=== PATIENT | male | born 1975 | race Caucasian/White ===

== ENCOUNTER 2024-04-10 16:18 | Emergency (ER) | payer BC, OTHER ==
--- NOTE | 2024-04-10 17:48 | RAD REPORT ---
EXAMINATION: ONE VIEW CHEST XR CLINICAL INDICATION: Chest bony TECHNIQUE: Frontal chest projection is submitted. Examination is limited by patient positioning and t echnique. COMPARISON: No prior exam. FINDINGS: The lungs are well inflated and clear. The heart is normal in size. No displaced fractures identified . IMPRESSION: No acute intrathoracic abnormalities.
[2024-04-10] MEDS ORDERED: ASPIRIN 81 MG CHEWABLE TABLET ONE (18:29)
[2024-04-10 18:35] LABS: Absolute Eosinophils 0.2 K/uL (0-0.5); Absolute Lymphocytes (CBC) 2.5 K/uL (0.7-4.9); Absolute Monocytes 0.6 K/uL (0.1-1.3); Absolute Neutrophil 2.9 K/uL (1.8-8.0); Basophils % 0.7 % (0-1.3); Eosinophils % 2.8 % (0-4.4); Hematocrit 45.2 % (39.6-49.0); Hemoglobin 15.4 g/dL (13.6-17.9); MCH 31.3 pg (27.0-35.0); MCV 92.1 fL (80-100); MPV 9.4 fL (7.6-11.3); Monocytes % 9.6 % (3.3-12.3); Neutrophils % 46.9 % (41.7-73.7); Nucleated Red Blood Cells % 0.1 % (0-0); Platelets 149 thou/uL (152-406); RBC Red Blood Cell Count 4.91 M/uL (4.33-5.43); Red Cell Distribution Width 14.1 % (12.1-15.2)
[2024-04-10 18:53] LABS: ALT/SGPT 49 U/L (16-61); AST/SGOT 23 U/L (15-37); Albumin 3.8 g/dL (3.4-5.0); Albumin/Globulin Ratio 1.1 (1.1-1.8); Alkaline Phosphatase 59 U/L (45-117); Anion Gap 6.7 mEq/L (5.0-15.0); BUN Blood Urea Nitrogen 10 mg/dL (7-18); Bicarbonate 29 mEq/L (21-32); Bilirubin Total 0.4 mg/dL (0.2-1.0); Globulin 3.6 g/dL (2.3-3.5); Glomerular Filtration Rate 86 ml/min (=/>90); Glucose Level 138 mg/dL (74-106); Magnesium 2.1 mg/dL (1.6-2.4); NT PRO-BNP 30 pg/mL (<125); Potassium 3.7 mEq/L (3.5-5.1); Protein, Total 7.4 g/dL (6.4-8.2); Sodium Level 137 mEq/L (136-145); Troponin High Sensitivity 3.9 pg/mL (<58.9)
[2024-04-10 19:03] LABS: Bilirubin Direct < 0.2 mg/dL (0-0.2); Bilirubin Indirect, Calculated 0.2 mg/dL (0.2-0.8)
--- NOTE | 2024-04-10 20:51 | EDPHYS ---
Physician Documentation [facility] Name: Veto Serrano Age: 48 yrs Sex: Male : 1975 Arrival Date: 04/10/2024 Time: 16:18 Bed 2 Private MD: ED Physician Jatinder Duggan HPI: 04/10 17:09 This 48 yrs old Male presents to ER via Ambulatory with complaints of Chest Tightness, kb Chest Pain - x2days. 17:10 Patient is a 48-year-old male who presents for left-sided chest tightness that started kb 3 days ago. States he woke up Monday morning with the tightness in his been constant since then. Reports intermittent headaches and high blood pressure. Denies nausea, vomiting, shortness of breath. No aggravating or alleviating factors. States he came in today because the pain is just persisted.. Historical: - Allergies: 16:55 No Known Allergies; ko1 - Home Meds: 16:57 triamterene-hydrochlorothiazid 37.5-25 mg Oral tablet 1 tab daily for hypertension ko1 [Active]; - PMHx: 16:55 Hypertensive disorder; Gastric reflux; ko1 - PSHx: 16:55 None; ko1 - Immunization history:: Adult Immunizations unknown. - Infectious Disease History:: Denies. - Social history:: Smoking status: Patient denies any tobacco usage or history of. ROS: 17:09 Constitutional: As per HPI kb Exam: 17:09 Constitutional: This is a well developed, well nourished patient who is awake, alert, kb and in no acute distress. Head/Face: Normocephalic, atraumatic. ENT: Moist Mucous membranes Cardiovascular: Regular rate Respiratory: Respirations even and unlabored. No increased work of breathing. Talking in full sentences Abdomen/GI: Soft, non-tender. No distention Skin: Warm, dry with normal turgor. Normal color. MS/ Extremity: Pulses equal, no cyanosis. Neurovascular intact. Full, normal range of motion. Neuro: Awake and alert, GCS 15, oriented to person, place, time, and situation. 17:09 ECG was reviewed by the Attending Physician. Vital Signs: 16:51 BP 142 / 96; Pulse 80; Resp 16; Temp 97.6; Pulse Ox 98% ; ko1 18:36 Pulse 68; Resp 17; ll1 20:06 BP 134 / 97; Pulse 69; Resp 16; Temp 97.6; Pulse Ox 98% ; Pain 6/10; bm8 21:15 BP 135 / 93; Pulse 63; Resp 17; Temp 97.6; Pulse Ox 96% ; Pain 0/10; bm8 20:06 Pain Scale: Adult bm8 21:15 Pain Scale: Adult bm8 [place] Coma Score: 20:06 Eye Response: spontaneous(4). Motor Response: obeys commands(6). Verbal Response: bm8 oriented(5). Total: 15. 21:15 Eye Response: spontaneous(4). Motor Response: obeys commands(6). Verbal Response: bm8 oriented(5). Total: 15. MDM: 16:23 Medical Screening Exam initiated kb 17:09 Data reviewed: vital signs, nurses notes. kb 20:51 Differential diagnosis: acute IL, arrhythmia. Consideration of Admission/Observation kb Escalation of care including admission/observation considered. admission considered but HEART score 2, serial troponin normal. Counseling: I had a detailed discussion with the patient and/or guardian regarding the historical points, exam findings, and any diagnostic results supporting the discharge/admit diagnosis, lab results, radiology results, the need for outpatient follow up, a family practitioner, to return to the emergency department if symptoms worsen or persist or if there are any questions or concerns that arise at home. 04/10 16:57 Order name: Basic Metabolic Panel; Complete Time: 19:05 kb 04/10 16:57 Order name: CBC with Diff; Complete Time: 18:41 kb 04/10 16:57 Order name: LFT's; Complete Time: 19:05 kb 04/10 16:57 Order name: Magnesium; Complete Time: 19:05 kb 04/10 16:57 Order name: NT PRO-BNP; Complete Time: 19:05 kb 04/10 16:57 Order name: Troponin HS; Complete Time: 19:05 kb 04/10 20:05 Order name: Troponin High Sensitivity; Complete Time: 20:50 kb 04/10 16:57 Order name: XRAY Chest (1 view); Complete Time: 17:50 kb 04/10 16:57 Order name: Cardiac monitoring; Complete Time: 18:25 kb 04/10 16:57 Order name: EKG - Nurse/Tech; Complete Time: 17:06 kb 04/10 16:57 Order name: IV Saline Lock; Complete Time: 18:16 kb 04/10 16:57 Order name: Labs collected and sent; Complete Time: 18:16 kb 04/10 16:57 Order name: O2 Per Protocol; Complete Time: 18:15 kb 04/10 16:57 Order name: O2 Sat Monitoring; Complete Time: 18:15 kb EC:09 Rate is 81 beats/min. Rhythm is regular. QRS [place] is Normal. ND interval is normal at kb 170 msec. QRS interval is normal at 92 msec. QT interval is normal at 443 msec. Administered Medications: 18:36 Drug: Aspirin PO Chewable Tablet 324 mg PO once; 81 mg tablets x 4 Route: PO; ll1 20:09 Follow up: Response: No adverse reaction bm8 Disposition Summary: 04/10/24 20:51 Discharge Ordered Notes: Location: Home kb Condition: Stable kb Diagnosis - Chest pain, unspecified kb Followup: kb - With: Emergency Department - When: As needed - Reason: Worsening of condition Followup: kb - With: Private Physician - When: 2 - 3 days - Reason: Recheck today's complaints, Continuance of care, Re-evaluation by your physician Discharge Instructions: - Nonspecific Chest Pain, Adult, [id number] kb - Discharge Summary Sheet ll1 Forms: - Medication Reconciliation Form kb - Antibiotic Education kb - Prescription Opioid Use kb - Patient Portal Instructions kb - Leadership Thank You Letter kb - SBAR form ll1 Signatures: Dispatcher [employer] EDJaylene Zamorano FNP-Flori GREERP-Rik Jordan RN RN ll1 Rachael Avila RN RN ko1 Reginald Almeida RN bm8 Corrections: (The following items were deleted from the chart) 16:58 16:58 Chest Single View+RAD.RAD.[email or web address] ordered. EDMI EDMS
--- NOTE | 2024-04-10 20:51 | ER ---
Nurse's Notes [facility] Name: Veto Serrano Age: 48 yrs Sex: Male : 1975 Arrival Date: 04/10/2024 Time: 16:18 Bed 2 Private MD: Diagnosis: Chest pain, unspecified Presentation: 04/10 16:51 Chief complaint: Patient states: having chest tightness, headache and high bp since ko1 monday. Coronavirus screen: At this time, the client does not indicate any symptoms associated with coronavirus-19. Ebola Screen: No symptoms or risks identified at this time. Initial Sepsis Screen: Does the patient meet any 2 criteria? No. Patient's initial sepsis screen is negative. Does the patient have a suspected source of infection? No. Patient's initial sepsis screen is negative. Risk Assessment: Do you want to hurt yourself or someone else? Patient reports no desire to harm self or others. Onset of symptoms is unknown. 16:51 Method Of Arrival: Ambulatory ko1 16:51 Acuity: YOANA 3 ko1 Triage Assessment: 16:55 General: Appears in no apparent distress. Behavior is calm, cooperative, appropriate ko1 for age. Pain: Complains of pain in chest. Cardiovascular: Reports chest tightness. Historical: - Allergies: 16:55 No Known Allergies; ko1 - Home Meds: 16:57 triamterene-hydrochlorothiazid 37.5-25 mg Oral tablet 1 tab daily for hypertension ko1 [Active]; - PMHx: 16:55 Hypertensive disorder; Gastric reflux; ko1 - PSHx: 16:55 None; ko1 - Immunization history:: Adult Immunizations unknown. - Infectious Disease History:: Denies. - Social history:: Smoking status: Patient denies any tobacco usage or history of. Screenin:36 [facility] ED Fall Risk Assessment (Adult) History of falling in the last 3 months, ll1 including since admission No falls in past 3 months (0 pts) Confusion or Disorientation No (0 pts) Intoxicated or Sedated No (0 pts) Impaired Gait No (0 pts) Mobility Assist Device Used No (0 pt) Altered Elimination No (0 pt) Score/Fall Risk Level 0 - 2 = Low Risk Maintained a safe environment, Hourly rounding (assess needs \T\ fall precautionary measures) done. Abuse screen: Denies threats or abuse. Nutritional screening: No deficits noted. Tuberculosis screening: No symptoms or risk factors identified. Assessment: 18:25 General: Appears in no apparent distress. Behavior is calm, cooperative, appropriate ll1 for age. Pain: Complains of pain in chest Quality of pain is described as pressure. Neuro: Reports dizziness, headache weakness. Cardiovascular: Reports chest pain. 18:36 Reassessment: No changes from previously documented assessment. Patient and/or family ll1 updated on plan of care and expected duration. Pain level reassessed. Patient is alert, oriented x 3, equal unlabored respirations, skin warm/dry/pink. 20:06 General: Appears in no apparent distress. comfortable, Behavior is calm, cooperative, bm8 appropriate for age. Pain: Complains of pain in head Pain does not radiate. Pain currently is 6 out of 10 on a pain scale. Quality of pain is described as aching, Pain began 2 hours ago. Neuro: Level of Consciousness is awake, alert, obeys commands, Oriented to person, place, time, situation, Appropriate for age Reports headache. Cardiovascular: Denies chest pain, Heart tones S1 S2 present Capillary refill < 3 seconds in bilateral fingers Patient's skin is warm and dry. Rhythm is sinus rhythm. Respiratory: No deficits noted. Airway is patent Trachea midline Respiratory effort is even, unlabored, Respiratory pattern is regular, symmetrical, Breath sounds are clear bilaterally. GI: No signs and/or symptoms were reported involving the gastrointestinal system. : No signs and/or symptoms were reported regarding the genitourinary system. EENT: No signs and/or symptoms were reported regarding the EENT system. Derm: No signs and/or symptoms reported regarding the dermatologic system. Musculoskeletal: No signs and/or symptoms reported regarding the musculoskeletal system. 21:15 Reassessment: Patient appears in no apparent distress at this time. Patient and/or bm8 family updated on plan of care and expected duration. Pain level reassessed. Patient is alert, oriented x 3, equal unlabored respirations, skin warm/dry/pink. Patient denies pain at this time. Patient states feeling better. Patient states symptoms have improved. Vital Signs: 16:51 BP 142 / 96; Pulse 80; Resp 16; Temp 97.6; Pulse Ox 98% ; ko1 18:36 Pulse 68; Resp 17; ll1 20:06 BP 134 / 97; Pulse 69; Resp 16; Temp 97.6; Pulse Ox 98% ; Pain 6/10; bm8 21:15 BP 135 / 93; Pulse 63; Resp 17; Temp 97.6; Pulse Ox 96% ; Pain 0/10; bm8 20:06 Pain Scale: Adult bm8 21:15 Pain Scale: Adult bm8 [place] Coma Score: 20:06 Eye Response: spontaneous(4). Motor Response: obeys commands(6). Verbal Response: bm8 oriented(5). Total: 15. 21:15 Eye Response: spontaneous(4). Motor Response: obeys commands(6). Verbal Response: bm8 oriented(5). Total: 15. ED Course: 16:22 Patient arrived in ED. ra3 16:23 Jay[facility] Pineda [facility]C [facility] kb 16:23 Jatinder Duggan MD is Attending Physician. kb 16:55 Triage completed. ko1 16:55 Arm band placed on right wrist. Patient placed in waiting room, Patient notified of ko1 wait time. 17:06 EKG done, by ED staff, reviewed by Jaylene OCONNELL. ko1 17:45 XRAY Chest (1 view) In Process Unspecified. EDMS 18:21 Allie Otero, RN is Primary Nurse. ph 18:25 Inserted saline lock: 20 gauge in left antecubital area, using aseptic technique. Blood ll1 collected. Flushed with 10 mL NS. 18:37 Patient has correct armband on for positive identification. Bed in low position. ll1 Provided Education on: ER procedures and process. Client placed on continuous cardiac and pulse oximetry monitoring. NIBP monitoring applied. athletic monitor on. 18:37 No provider procedures requiring assistance completed. Patient maintains SpO2 ll1 saturation greater than 95% on room air. 20:06 Door closed. Noise minimized. Pillow given. Verbal reassurance given. Head of bed. bm8 21:15 IV discontinued, intact, bleeding controlled, No redness/swelling at site. Pressure bm8 dressing applied. Administered Medications: 18:36 Drug: Aspirin PO Chewable Tablet 324 mg PO once; 81 mg tablets x 4 Route: PO; ll1 20:09 Follow up: Response: No adverse reaction bm8 Medication: 20:06 VIS not applicable for this client. bm8 Outcome: 20:51 Discharge ordered by MD. rosenbaum 21:15 Discharged to home ambulatory, bm8 21:15 Condition: stable 21:15 Discharge instructions given to patient, Instructed on discharge instructions, follow up and referral plans. safety practices, Demonstrated understanding of instructions, follow-up care, medications, 21:16 Patient left the ED. bm8 Signatures: Dispatcher [employer] EDMS Jaylene iPneda, CHARGING OPERATOR-C CHARGING OPERATOR-Allie Zamora, RN RN Rik Dorado RN RN ll1 Rachael Avila, RACHID RN cookie1 Jenny Manzo ra3 Reginald Almeida, RN RN bm8
[2024-04-10 21:51] VITALS: TEMP 97.6
[2024-04-10 22:00] VITALS: BP 135/93; O2SAT 96
== END 2024-04-10 21:16 | disposition home or self-care (01) ==
LOC: ER 16:18
DX: R07.89 Other chest pain (principal); R51.9 Headache, unspecified; I10 Essential (primary) hypertension
CPT/HCPCS: 36415; 71045; 80048; 80076; 83735; 83880; 84484; 85025